=== PATIENT | female | born 1990 | race Caucasian/White ===

== ENCOUNTER 2017-04-08 07:25 | Emergency (ER) | payer BC ==
[2017-04-08 07:55] VITALS: RESP 20; TEMP 98.2; O2SAT 100
[2017-04-08] MEDS ORDERED: Sodium Chloride 0.9% 1,000 ML IV ONE (08:12)
[2017-04-08] MEDS ORDERED: DiphenhydrAMINE 50 mg/ml Inj IVP STA (08:12)
--- NOTE | 2017-04-08 08:37 | C.PDOC ---
History Of Present Illness 26 year old female with no significant PMH,complains of itchy rash started yesterday and spread to entire body. She states she took Benadryl last night with no relief. This morning patient awoke with discomfort to midsternal region , she states "I feel like gas is stuck". Denies sharp chest pain, SOB, difficulty swallowing. Time Seen by Provider: 04/08/17 07:47 Chief Complaint (Nursing): Chest Pain Past Medical History Reviewed: Historical Data, Nursing Documentation, Vital Signs Vital Signs: Last Vital Signs Temp 98.2 F 04/08/17 10:06 Pulse 90 04/08/17 10:06 Resp 20 04/08/17 10:06 BP 106/66 04/08/17 10:06 Pulse Ox 100 04/08/17 10:18 Family History: States: No Known Family Hx - Social History Hx Alcohol Use: Yes Hx Substance Use: No - Immunization History Hx Tetanus Toxoid Vaccination: No Hx Influenza Vaccination: No Hx Pneumococcal Vaccination: No Review Of Systems Except As Marked, All Systems Reviewed And Found Negative. Constitutional: Negative for: Fever, Chills Cardiovascular: Positive for: Chest Pain Respiratory: Negative for: Shortness of Breath Skin: Positive for: Rash (itchy, diffuse) Neurological: Negative for: Headache, Dizziness Physical Exam - Physical Exam Appears: Non-toxic, No Acute Distress Skin: Warm, Dry, Other (diffuse maculopapular rash more concentrated to arms, excludes face) Head: Atraumatic, Normacephalic Eye(s): bilateral: Normal Inspection, EOMI Ear(s): Bilateral: Normal Nose: Normal Oral Mucosa: Moist Tongue: Normal Appearing, No Swelling Lips: Normal Appearing, No Swelling Throat: No Drooling, No Mass, Other (No airway compromise.) Neck: Normal ROM, Supple Chest: Symmetrical Cardiovascular: Rhythm Regular, No Murmur Respiratory: Normal Breath Sounds, No Accessory Muscle Use, No Rhonchi, No Wheezing Extremity: Bilateral: Atraumatic, Normal Color And Temperature, Normal ROM Neurological/Psych: Oriented x3, Normal Speech Gait: Steady ED Course And Treatment ECG: Interpreted By Me, Viewed By Me ECG Rhythm: Sinus Rhythm, PVC (occasional) ECG Interpretation: No Acute Changes Interpretation Of ECG: NS at 81 bpm with PVC normal axis and no ST-T changes Rate From EC O2 Sat by Pulse Oximetry: 100 (room air) Pulse Ox Interpretation: Normal Medical Decision Making Medical Decision Making: Plan: * Benadryl, Pepcid. Solu-Medrol and IVF Reassess and Disposition: Upon reevaluation, patient is resting comfortably, tolerating PO, has no shortness of breath, has no intra-oral swelling, no stridor. She reports pruritus has improved. Patient was advised to avoid potential allergens, and to follow up with physician in 1-2 days. All questions answered. Disposition Counseled Patient/Family Regarding: Need For Followup, Rx Given - Disposition Referrals: [facility] [Outside] [facility] [Outside] Disposition: HOME/ ROUTINE Disposition Time: 09:49 Condition: IMPROVED Additional Instructions: Thank you for letting us take care of you today. Your provider was CALISTA Lin and Dr Stover. You were treated for Allergic Reaction. The emergency medical care you received today was directed at your acute symptoms. If you were prescribed any medication, please fill it and take as directed. It may take several days for your symptoms to resolve. Return to the Emergency Department if your symptoms worsen, do not improve, or if you have any other problems. Please contact your doctor or call one of the physicians/clinics you have been referred to that are listed on the Patient Visit Information form that is included in your discharge packet. Bring any paperwork you were given at discharge with you along with any medications you are taking to your follow up visit. Our treatment cannot replace ongoing medical care by a primary care provider (PCP) outside of the emergency department. Thank you for allowing the [facility] team to be part of your care today. Prescriptions: Famotidine [Pepcid] 20 mg PO DAILY #30 tab hydrOXYzine HCl [Atarax] 25 mg PO Q6H #30 tab Prednisone 50 mg PO DAILY #5 tablet Instructions: Urticaria (GEN) - POA Present On Arrival: None - Clinical Impression Clinical Impression: Allergic urticaria, Dyspepsia - PA / UNIT MANAGER RN / Resident Statement MD/DO has reviewed & agrees with the documentation as recorded. - Scribe Statement The provider has reviewed the documentation as recorded by the Scribe (Lulu Cleary) All medical record entries made by the Scribe were at my direction and personally dictated by me. I have reviewed the chart and agree that the record accurately reflects my personal performance of the history, physical exam, medical decision making, and the department course for this patient. I have also personally directed, reviewed, and agree with the discharge instructions and disposition.
[2017-04-08] MEDS ORDERED: DiphenhydrAMINE 50 mg/ml Inj ONE (08:38)
[2017-04-08] MEDS ORDERED: Sodium Chloride 0.9% 1,000 ML ONE (08:39)
[2017-04-08] MEDS ORDERED: MethylPREDNISolone 40 mg Vial ONE (08:39)
[2017-04-08 10:07] VITALS: BP 106/66; PULSE 90
--- NOTE | 2017-04-09 11:22 | CARD ---
APPROVED REPORT EKG Measurement Heart [id number] <Conclusion> Sinus rhythm Otherwise normal ECG
== END 2017-04-08 10:07 | disposition home or self-care (01) ==
LOC: C.ER 07:25
DX: L50.0 Allergic urticaria (principal); R10.13 Epigastric pain
CPT/HCPCS: 96361; 96374; 96375; 99285; J1200; J2930; J7040